=== PATIENT | male | born 1965 | race Caucasian/White ===

== ENCOUNTER 2020-06-03 15:02 | Emergency (ER) | payer SELFPAY ==
[~2020-06-03] VITALS: Ht 172.7 cm; Wt 89.5 kg
[2020-06-03 15:05] VITALS: BP 157/112
[2020-06-03] MEDS ORDERED: METHOCARBAMOL 750 MG TABLET ONE (15:21)
[2020-06-03] MEDS ORDERED: METHOCARBAMOL 750 MG TABLET PO ONE (15:30)
== END 2020-06-03 16:46 | disposition home or self-care (01) ==
LOC: ED 15:58
DX: S22.089A Unspecified fracture of T11-T12 vertebra, initial encounter for closed fracture (principal); V09.9XXA Pedestrian injured in unspecified transport accident, initial encounter; Y93.89 Activity, other specified; Y92.481 Parking lot as the place of occurrence of the external cause; Y99.8 Other external cause status
CPT/HCPCS: 72072; 72110; 99284

== ENCOUNTER 2020-06-05 17:05 | Emergency (ER) | payer OTHER ==
[~2020-06-05] VITALS: Ht 172.7 cm; Wt 92.6 kg
[2020-06-05] MEDS ORDERED: DIAZEPAM 5 MG/ML, 2ML IVPush ONE (17:30)
[2020-06-05] MEDS ORDERED: KETOROLAC 30 MG/1 ML IVPush ONE (17:30)
[2020-06-05] MEDS ORDERED: LIDODERM 5% PATCH TD ONE ×2 (17:30→17:44)
[2020-06-05] MEDS ORDERED: DIAZEPAM 5 MG/ML, 2ML ONE (17:44)
--- NOTE | 2020-06-05 18:03 | NUR ---
piv placed-medicated per emar for lower back/right leg pain at 06/17
--- NOTE | 2020-06-05 18:56 | NUR ---
REPORT FROM GUANACO BRYANT AT T HIS TIME
--- NOTE | 2020-06-05 18:59 | NUR ---
Eith reassessment patient reports "before Ct scan my pain was getting better like a 7, now its back up to 8 or 9." Provider made aware Report to amy BRYANT
[2020-06-05] MEDS ORDERED: MORPHINE SULFATE 4 MG/ML, 1ML ONE (19:12)
[2020-06-05] MEDS ORDERED: MORPHINE SULFATE 4 MG/ML, 1ML IVPush PRN (19:30)
[2020-06-05 21:04] VITALS: BP 152/98
== END 2020-06-05 21:07 | disposition home or self-care (01) ==
LOC: ED 19:03
DX: M54.16 Radiculopathy, lumbar region (principal); M54.6 Pain in thoracic spine
CPT/HCPCS: 72128; 72131; 96374; 96375; 99285; J1885; J2270; J3360

== ENCOUNTER 2020-06-12 21:18 | Emergency (ER) | payer OTHER ==
[~2020-06-12] VITALS: Ht 175.3 cm; Wt 91.0 kg
[2020-06-12 21:56] LABS: MICROSCOPIC INDICATED
[2020-06-12] MEDS ORDERED: KETOROLAC 30 MG/1 ML IVPush ONE (22:00)
[2020-06-12] MEDS ORDERED: SODIUM CHLORIDE FLUSH 10ML SYR IVF ONE (22:00)
[2020-06-12] MEDS ORDERED: ONDANSETRON 2MG/ML, 2ML IVPush ONE (22:00)
--- NOTE | 2020-06-12 22:20 | NUR ---
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
[2020-06-12] MEDS ORDERED: KETOROLAC 30 MG/1 ML ONE (22:34)
[2020-06-12] MEDS ORDERED: ONDANSETRON 2MG/ML, 2ML ONE (22:34)
[2020-06-12 22:39] LABS: ALANINE AMINOTRANSFERASE 20 U/L (12-78); ALBUMIN 4.2 g/dL (3.4-5.0); ANION GAP 4 mmol/L (5-15); CALCIUM 9.2 mg/dL (8.5-10.1); CHLORIDE 107 mmol/L (98-107); CREATININE 1.15 mg/dL (0.7-1.3)
[2020-06-12 22:41] LABS: ALKALINE PHOSPHATASE 115 U/L (45-117); BILIRUBIN,TOTAL 0.8 mg/dL (0.2-1.0); TOTAL PROTEIN 7.8 g/dL (6.4-8.2)
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
[2020-06-12 22:54] LABS: BASOPHILS % (AUTO) 1 % (0-1); EOSINOPHILS % (AUTO) 1 % (1-7); LYMPHOCYTES % (AUTO) 19 % (22-44); MEAN CORPUSCULAR HEMOGLOBIN 29.9 pg (27.5-34.5); MEAN CORPUSCULAR HGB CONC 33.6 g/dL (33.2-36.2); MONOCYTES % (AUTO) 8 % (2-9); NEUTROPHILS % (AUTO) 71 % (42-75); PLATELET COUNT 248 x10^3/uL (130-400); RED CELL DISTRIBUTION WIDTH 13.9 % (9.4-14.8)
[2020-06-12] MEDS ORDERED: MORPHINE SULFATE 4 MG/ML, 1ML ONE (23:10)
[2020-06-12] MEDS: MORPHINE SULFATE 4 MG/ML, 1ML IVPush PRN (23:12)
[2020-06-12 23:18] LABS: MD NO
[2020-06-13] MEDS ORDERED: MORPHINE SULFATE 4 MG/ML, 1ML ONE (00:19)
[2020-06-13] MEDS: MORPHINE SULFATE 4 MG/ML, 1ML IVPush PRN (00:20)
[2020-06-13 00:23] VITALS: BP 150/80
== END 2020-06-13 00:50 | disposition home or self-care (01) ==
LOC: ED 23:17
DX: N20.0 Calculus of kidney (principal)
CPT/HCPCS: 36415; 74176; 80053; 81001; 85025; 87086; 96374; 96375; 96376; 99284; J1885; J2270; J2405

== ENCOUNTER 2020-06-15 06:45 | Emergency (ER) | payer OTHER ==
[~2020-06-15] VITALS: Ht 172.7 cm; Wt 91.8 kg
--- NOTE | 2020-06-15 07:20 | NUR ---
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 PT PROVIDED WITH URINE CUP. AMB TO BR TO ATTEMPT TO OBTAIN URINE SAMPLE.
[2020-06-15] MEDS ORDERED: KETOROLAC 60 MG/2 ML ONE (07:57)
[2020-06-15] MEDS ORDERED: KETOROLAC 30 MG/1 ML IM ONE (08:00)
[2020-06-15 08:05] LABS: BASOPHILS % (AUTO) 1 % (0-1); EOSINOPHILS % (AUTO) 2 % (1-7); LYMPHOCYTES % (AUTO) 27 % (22-44); MEAN CORPUSCULAR HGB CONC 33.4 g/dL (33.2-36.2); MEAN PLATELET VOLUME 7.8 fL (7.4-10.4); MONOCYTES % (AUTO) 8 % (2-9); NEUTROPHILS % (AUTO) 62 % (42-75); PLATELET COUNT 227 x10^3/uL (130-400); RED BLOOD COUNT 4.51 x10^6/uL (4.38-5.82); RED CELL DISTRIBUTION WIDTH 14.5 % (9.4-14.8)
[2020-06-15 08:09] LABS: MD NO
[2020-06-15 08:14] LABS: ALBUMIN 3.9 g/dL (3.4-5.0); CALCIUM 8.9 mg/dL (8.5-10.1); CREATININE 0.98 mg/dL (0.7-1.3)
[2020-06-15 08:28] LABS: ANION GAP 7 mmol/L (5-15); CHLORIDE 110 mmol/L (98-107)
[2020-06-15 08:29] LABS: MICROSCOPIC INDICATED
[2020-06-15 09:00] VITALS: BP 131/76
--- NOTE | 2020-06-15 09:04 | NUR ---
law in room, pt to be tx for colitis. as
== END 2020-06-15 09:32 | disposition home or self-care (01) ==
LOC: ED 07:59
DX: N20.0 Calculus of kidney (principal); A09 Infectious gastroenteritis and colitis, unspecified
CPT/HCPCS: 36415; 74018; 76770; 80048; 81001; 82040; 85025; 96372; 99285; J1885

== ENCOUNTER 2020-06-19 12:52 | Emergency (ER) | payer SELFPAY ==
[~2020-06-19] VITALS: Ht 172.7 cm; Wt 92.3 kg
[2020-06-19 13:42] LABS: MICROSCOPIC AUTO
[2020-06-19] MEDS ORDERED: ONDANSETRON 2MG/ML, 2ML IVPush ONE (14:00)
[2020-06-19] MEDS ORDERED: KETOROLAC 30 MG/1 ML IVPush ONE (14:00)
[2020-06-19] MEDS ORDERED: SODIUM CHLORIDE FLUSH 10ML SYR IVF ONE (14:00)
[2020-06-19] MEDS ORDERED: KETOROLAC 30 MG/1 ML ONE (14:12)
[2020-06-19] MEDS ORDERED: ONDANSETRON ODT 4 MG ONE (14:12)
[2020-06-19] MEDS ORDERED: ONDANSETRON 2MG/ML, 2ML ONE (14:13)
[2020-06-19 14:29] LABS: BASOPHILS % (AUTO) 1 % (0-1); EOSINOPHILS % (AUTO) 1 % (1-7); LYMPHOCYTES % (AUTO) 22 % (22-44); MEAN CORPUSCULAR HEMOGLOBIN 29.5 pg (27.5-34.5); MEAN CORPUSCULAR HGB CONC 32.9 g/dL (33.2-36.2); MEAN PLATELET VOLUME 7.6 fL (7.4-10.4); MONOCYTES % (AUTO) 6 % (2-9); NEUTROPHILS % (AUTO) 70 % (42-75); PLATELET COUNT 226 x10^3/uL (130-400); RED BLOOD COUNT 4.51 x10^6/uL (4.38-5.82); RED CELL DISTRIBUTION WIDTH 14.6 % (9.4-14.8)
[2020-06-19 14:39] LABS: ALBUMIN 4.2 g/dL (3.4-5.0); ANION GAP 6 mmol/L (5-15); CALCIUM 9.5 mg/dL (8.5-10.1); CHLORIDE 111 mmol/L (98-107); CREATININE 0.97 mg/dL (0.7-1.3)
[2020-06-19 14:42] LABS: MD NO
[2020-06-19] MEDS ORDERED: HYDROmorphone 2 MG/ML, 1ML IVPush PRN (15:30)
[2020-06-19] MEDS ORDERED: HYDROmorphone 1 MG/ML, 1ML INJ ONE (15:31)
--- NOTE | 2020-06-19 15:35 | NUR ---
pt still c/o pain after toradol, medicated with dilaudid, vss. placed on monitor
[2020-06-19 16:45] VITALS: BP 164/87
== END 2020-06-19 16:47 | disposition home or self-care (01) ==
LOC: ED 14:34
DX: N23 Unspecified renal colic (principal); R11.0 Nausea; R30.9 Painful micturition, unspecified
CPT/HCPCS: 36415; 74018; 76770; 80048; 81001; 82040; 85025; 87086; 96374; 96375; 99285; J1170; J1885; J2405

== ENCOUNTER 2020-06-28 16:02 | Emergency (ER) | payer OTHER ==
[~2020-06-28] VITALS: Ht 172.7 cm; Wt 91.3 kg
[2020-06-28 16:28] VITALS: BP 161/104
[2020-06-28] MEDS ORDERED: HYDROcodone/APAP 10/325 MG TABLET PO ONE (17:30)
[2020-06-28] MEDS ORDERED: CYCLOBENZAPRINE 10 MG TABLET PO ONE (17:30)
[2020-06-28] MEDS ORDERED: CYCLOBENZAPRINE 10 MG TABLET ONE (17:46)
[2020-06-28] MEDS ORDERED: HYDROcodone/APAP 10/325 MG TABLET ONE (17:46)
[2020-06-28] MEDS ORDERED: HYDROcodone/APAP 5/325 TABLET ONE ×2 (18:23→18:25)
[2020-06-28] MEDS ORDERED: HYDROcodone/APAP 5/325 TABLET PO ONE (18:30)
== END 2020-06-28 19:18 | disposition home or self-care (01) ==
LOC: ED 19:00
DX: S39.012A Strain of muscle, fascia and tendon of lower back, initial encounter (principal); W22.8XXA Striking against or struck by other objects, initial encounter; Y93.89 Activity, other specified; Y92.89 Other specified places as the place of occurrence of the external cause; Y99.8 Other external cause status
CPT/HCPCS: 99284

== ENCOUNTER 2020-07-20 17:53 | Emergency (ER) | payer OTHER ==
[~2020-07-20] VITALS: Ht 172.7 cm; Wt 98.0 kg
[2020-07-20 18:04] VITALS: BP 163/90
--- NOTE | 2020-07-20 18:39 | NUR ---
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
--- NOTE | 2020-07-20 21:07 | NUR ---
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 BACK IN LOBBY REQUESTING TO BE SEEN.
--- NOTE | 2020-07-20 21:23 | NUR ---
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
--- NOTE | 2020-07-20 21:31 | NUR ---
THIS IS A 55Y M THAT COMES IN FOR LOW BACK PAIN. PT HAS HX OF THIS BUT STS ITS WORSE TODAY. PT AMBULATORY THROUGH ER NO ASSIST REQUIRED. PT RESTING ON GURNEY NADN. NO NEEDS AT THIS TIME. EDUCATED ON NEED FOR URINE SAMPLE
--- NOTE | 2020-07-20 21:37 | NUR ---
PT UP TO RESTROOM FOR URINE SAMPLE
[2020-07-20 21:38] LABS: BASOPHILS % (AUTO) 1 % (0-1); EOSINOPHILS % (AUTO) 2 % (1-7); LYMPHOCYTES % (AUTO) 18 % (22-44); MEAN CORPUSCULAR HEMOGLOBIN 29.9 pg (27.5-34.5); MEAN CORPUSCULAR HGB CONC 33.4 g/dL (33.2-36.2); MEAN PLATELET VOLUME 7.7 fL (7.4-10.4); MONOCYTES % (AUTO) 8 % (2-9); NEUTROPHILS % (AUTO) 72 % (42-75); PLATELET COUNT 236 x10^3/uL (130-400); RED BLOOD COUNT 4.65 x10^6/uL (4.38-5.82); RED CELL DISTRIBUTION WIDTH 14.2 % (9.4-14.8)
[2020-07-20 21:39] LABS: MD NO
[2020-07-20 21:47] LABS: ALANINE AMINOTRANSFERASE 21 U/L (12-78); ALBUMIN 4.5 g/dL (3.4-5.0); ANION GAP 6 mmol/L (5-15); CALCIUM 9.8 mg/dL (8.5-10.1); CHLORIDE 107 mmol/L (98-107); CREATININE 1.03 mg/dL (0.7-1.3)
[2020-07-20 21:49] LABS: ALKALINE PHOSPHATASE 122 U/L (45-117); BILIRUBIN,TOTAL 0.7 mg/dL (0.2-1.0); TOTAL PROTEIN 8.1 g/dL (6.4-8.2)
--- NOTE | 2020-07-20 21:50 | NUR ---
URINE SAMPLE WALKED TO LAB
[2020-07-20 22:06] LABS: MICROSCOPIC AUTO
--- NOTE | 2020-07-20 22:15 | NUR ---
ETIENNE AT BEDSIDE FOR ASSESSMENT AND POC
[2020-07-20] MEDS ORDERED: KETOROLAC 30 MG/1 ML ONE (22:24)
[2020-07-20] MEDS ORDERED: DIAZEPAM 5 MG TABLET ONE (22:24)
[2020-07-20] MEDS ORDERED: KETOROLAC 30 MG/1 ML IM ONE (22:30)
[2020-07-20] MEDS ORDERED: DIAZEPAM 5 MG TABLET PO ONE (22:30)
--- NOTE | 2020-07-20 22:30 | NUR ---
PT MEDICATED PER VALERIE ALEX
--- NOTE | 2020-07-20 23:18 | NUR ---
Patient given discharge instructions and prescription and they have confirmed that they understand the instructions. All questions answered. Patient stable and ambulatory with steady gait from ED.
== END 2020-07-20 23:19 | disposition home or self-care (01) ==
LOC: ED 22:49
DX: G89.29 Other chronic pain (principal); M54.5 Low back pain; R31.29 Other microscopic hematuria
CPT/HCPCS: 36415; 80053; 81001; 85025; 96372; 99283; J1885

== ENCOUNTER 2020-08-02 07:52 | Emergency (ER) | payer OTHER ==
[2020-08-02] MEDS ORDERED: SODIUM CHLORIDE FLUSH 10ML SYR IVF ONE (08:30)
[2020-08-02] MEDS ORDERED: ONDANSETRON 2MG/ML, 2ML IVPush ONE ×2 (08:30→09:30)
[2020-08-02] MEDS ORDERED: KETOROLAC 30 MG/1 ML IVPush ONE (08:30)
[2020-08-02] MEDS ORDERED: ONDANSETRON 2MG/ML, 2ML ONE (08:47)
[2020-08-02] MEDS ORDERED: KETOROLAC 30 MG/1 ML ONE (08:47)
[2020-08-02 08:50] LABS: BASOPHILS % (AUTO) 2 % (0-1); EOSINOPHILS % (AUTO) 1 % (1-7); LYMPHOCYTES % (AUTO) 22 % (22-44); MEAN CORPUSCULAR HEMOGLOBIN 29.8 pg (27.5-34.5); MEAN CORPUSCULAR HGB CONC 33.4 g/dL (33.2-36.2); MEAN PLATELET VOLUME 7.8 fL (7.4-10.4); MONOCYTES % (AUTO) 7 % (2-9); NEUTROPHILS % (AUTO) 69 % (42-75); PLATELET COUNT 222 x10^3/uL (130-400); RED BLOOD COUNT 4.92 x10^6/uL (4.38-5.82)
[2020-08-02 08:52] LABS: MD NO
[2020-08-02 08:57] LABS: ALBUMIN 4.3 g/dL (3.4-5.0); ANION GAP 9 mmol/L (5-15); CALCIUM 9.4 mg/dL (8.5-10.1); CHLORIDE 110 mmol/L (98-107); CREATININE 1.07 mg/dL (0.7-1.3)
[2020-08-02 09:05] LABS: MICROSCOPIC INDICATED
[2020-08-02] MEDS ORDERED: MORPHINE SULFATE 4 MG/ML, 1ML IVPush PRN (09:30)
[2020-08-02] MEDS ORDERED: MORPHINE SULFATE 4 MG/ML, 1ML ONE (10:01)
[2020-08-02 11:07] VITALS: BP 163/94
== END 2020-08-02 11:12 | disposition home or self-care (01) ==
LOC: ED 08:47
DX: N23 Unspecified renal colic (principal); R31.9 Hematuria, unspecified
CPT/HCPCS: 36415; 74176; 80048; 81001; 82040; 85025; 87086; 96374; 96375; 99284; J1885; J2270; J2405

== ENCOUNTER 2020-08-04 22:52 | Emergency (ER) | payer OTHER ==
[~2020-08-04] VITALS: Ht 172.7 cm; Wt 93.0 kg
[2020-08-04] MEDS ORDERED: KETOROLAC 30 MG/1 ML ONE (23:15)
[2020-08-04] MEDS ORDERED: MORPHINE SULFATE 4 MG/ML, 1ML ONE (23:15)
[2020-08-04] MEDS ORDERED: ONDANSETRON 2MG/ML, 2ML ONE (23:15)
[2020-08-04 23:23] LABS: MICROSCOPIC INDICATED
[2020-08-04] MEDS: MORPHINE SULFATE 4 MG/ML, 1ML IVPush PRN (23:24)
[2020-08-04] MEDS ORDERED: ONDANSETRON 2MG/ML, 2ML IVPush ONE (23:30)
[2020-08-04] MEDS ORDERED: SODIUM CHLORIDE FLUSH 10ML SYR IVF ONE (23:30)
[2020-08-04] MEDS ORDERED: KETOROLAC 30 MG/1 ML IVPush ONE (23:30)
--- NOTE | 2020-08-04 23:31 | NUR ---
IV STARTED BLOOD DRAWN AND SENT, URINE SENT. MEDICATED PER ORDER, SIDE RAILS UP, CALL STREET IN REACH, ON CONT PULSE OX B/P. WILL RE-EVALUATE.
[2020-08-04 23:45] LABS: BASOPHILS % (AUTO) 1 % (0-1); EOSINOPHILS % (AUTO) 2 % (1-7); LYMPHOCYTES % (AUTO) 24 % (22-44); MD NO; MEAN CORPUSCULAR HEMOGLOBIN 30.4 pg (27.5-34.5); MEAN CORPUSCULAR HGB CONC 33.7 g/dL (33.2-36.2); MEAN PLATELET VOLUME 7.9 fL (7.4-10.4); MONOCYTES % (AUTO) 7 % (2-9); NEUTROPHILS % (AUTO) 66 % (42-75); PLATELET COUNT 230 x10^3/uL (130-400); RED BLOOD COUNT 4.67 x10^6/uL (4.38-5.82); RED CELL DISTRIBUTION WIDTH 13.9 % (9.4-14.8)
[2020-08-04 23:55] LABS: ALANINE AMINOTRANSFERASE 26 U/L (12-78); ALBUMIN 4.1 g/dL (3.4-5.0); ANION GAP 4 mmol/L (5-15); CALCIUM 8.9 mg/dL (8.5-10.1); CHLORIDE 108 mmol/L (98-107); CREATININE 1.02 mg/dL (0.7-1.3)
[2020-08-04 23:58] LABS: ALKALINE PHOSPHATASE 116 U/L (45-117); BILIRUBIN,TOTAL 0.9 mg/dL (0.2-1.0); TOTAL PROTEIN 7.5 g/dL (6.4-8.2)
[2020-08-05] MEDS: MORPHINE SULFATE 4 MG/ML, 1ML IVPush PRN (00:01)
--- NOTE | 2020-08-05 00:05 | NUR ---
PT STATES PAIN NOT IMPROVED, MEDICATED WITH 2ND DOSE OF MORPHINE. ON CONT PULSE OX, B/P. CALL STREET IN REACH. WILL CONTINUE TO MONITOR.
--- NOTE | 2020-08-05 00:14 | NUR ---
PT REPORTS FEELING BETTER. VSS.
[2020-08-05 00:22] VITALS: BP 124/74
== END 2020-08-05 00:25 | disposition home or self-care (01) ==
LOC: ED 23:22
DX: N20.0 Calculus of kidney (principal); R31.9 Hematuria, unspecified; R10.9 Unspecified abdominal pain; R11.0 Nausea
CPT/HCPCS: 36415; 80053; 81001; 85025; 87086; 96374; 96375; 96376; 99284; J1885; J2270; J2405

== ENCOUNTER 2020-12-13 13:22 | Emergency (ER) | payer SELFPAY ==
[~2020-12-13] VITALS: Ht 172.7 cm; Wt 92.1 kg
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
[2020-12-13] MEDS ORDERED: SODIUM CHLORIDE FLUSH 10ML SYR IVF ONE (14:00)
[2020-12-13] MEDS ORDERED: ONDANSETRON 2MG/ML, 2ML IVPush ONE (14:00)
[2020-12-13 14:01] LABS: BASOPHILS % (AUTO) 1 % (0-1); EOSINOPHILS % (AUTO) 4 % (1-7); LYMPHOCYTES % (AUTO) 20 % (22-44); MEAN CORPUSCULAR HEMOGLOBIN 29.9 pg (27.5-34.5); MEAN CORPUSCULAR HGB CONC 33.4 g/dL (33.2-36.2); MEAN PLATELET VOLUME 7.1 fL (7.4-10.4); MONOCYTES % (AUTO) 9 % (2-9); NEUTROPHILS % (AUTO) 68 % (42-75); PLATELET COUNT 234 x10^3/uL (130-400); RED BLOOD COUNT 3.95 x10^6/uL (4.38-5.82); RED CELL DISTRIBUTION WIDTH 13.4 % (9.4-14.8)
[2020-12-13 14:02] LABS: MD NO
[2020-12-13] MEDS ORDERED: ONDANSETRON 2MG/ML, 2ML ONE (14:09)
[2020-12-13] MEDS ORDERED: MORPHINE SULFATE 4 MG/ML, 1ML ONE ×2 (14:09→14:51)
[2020-12-13] MEDS: MORPHINE SULFATE 4 MG/ML, 1ML IVPush PRN ×2 (14:12→14:53)
[2020-12-13 14:13] LABS: ALANINE AMINOTRANSFERASE 24 U/L (12-78); ANION GAP 4 mmol/L (5-15); CHLORIDE 110 mmol/L (98-107); CREATININE 0.89 mg/dL (0.7-1.3)
--- NOTE | 2020-12-13 14:15 | NUR ---
PT MEDICATED PER EMAR FOR PAIN
[2020-12-13 14:16] LABS: ALKALINE PHOSPHATASE 110 U/L (45-117); BILIRUBIN,TOTAL 0.4 mg/dL (0.2-1.0); TOTAL PROTEIN 7.8 g/dL (6.4-8.2)
[2020-12-13] MEDS ORDERED: OMNIPAQUE 350 MG/ML, 75ML BOTTLE ONE ×2 (14:46→15:05)
--- NOTE | 2020-12-13 14:56 | NUR ---
PT REPORTS CONTINUED PAIN. MEDICATED PER EMAR. BP STABLE. AWAITING CT READ
[2020-12-13 14:57] VITALS: BP 147/80
[2020-12-13] MEDS ORDERED: OXYcodone/APAP 5/325MG TABLET PO ONE (15:30)
[2020-12-13] MEDS ORDERED: OXYcodone/APAP 5/325MG TABLET ONE (15:41)
--- NOTE | 2020-12-13 15:58 | NUR ---
DC EDUCATION PROVIDED, PT DEMONSTRATES UNDERSTANDING. PT AMBULATED STEADILY TO DC WITH RN. SON TO TRANSPORT PT HOME
== END 2020-12-13 16:00 | disposition home or self-care (01) ==
LOC: ED 15:45
DX: S20.213A Contusion of bilateral front wall of thorax, initial encounter (principal); R06.02 Shortness of breath; M54.5 Low back pain; R10.9 Unspecified abdominal pain; X58.XXXA Exposure to other specified factors, initial encounter; Y93.89 Activity, other specified; Y92.89 Other specified places as the place of occurrence of the external cause; Y99.8 Other external cause status
CPT/HCPCS: 36415; 71260; 80053; 85025; 96374; 96375; 96376; 99285; J2270; J2405; Q9967

== ENCOUNTER 2021-02-07 13:32 | Emergency (ER) | payer SELFPAY ==
[~2021-02-07] VITALS: Ht 172.7 cm; Wt 85.0 kg
[2021-02-07] MEDS ORDERED: ONDANSETRON 2MG/ML, 2ML ONE (14:19)
[2021-02-07] MEDS ORDERED: MORPHINE SULFATE 4 MG/ML, 1ML ONE ×2 (14:19→14:56)
[2021-02-07] MEDS: MORPHINE SULFATE 4 MG/ML, 1ML IVPush PRN ×2 (14:25→15:00)
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
[2021-02-07] MEDS ORDERED: ONDANSETRON 2MG/ML, 2ML IVPush ONE (14:30)
[2021-02-07] MEDS ORDERED: SODIUM CHLORIDE 0.9% 1,000 ML IV ONE (14:30)
[2021-02-07] MEDS ORDERED: SODIUM CHLORIDE FLUSH 10ML SYR IVF ONE (14:30)
[2021-02-07 14:33] LABS: BASOPHILS % (AUTO) 1 % (0-1); EOSINOPHILS % (AUTO) 4 % (1-7); LYMPHOCYTES % (AUTO) 18 % (22-44); MEAN CORPUSCULAR HEMOGLOBIN 28.6 pg (27.5-34.5); MEAN CORPUSCULAR HGB CONC 33.7 g/dL (33.2-36.2); MEAN PLATELET VOLUME 7.4 fL (7.4-10.4); MONOCYTES % (AUTO) 8 % (2-9); NEUTROPHILS % (AUTO) 71 % (42-75); PLATELET COUNT 293 x10^3/uL (130-400); RED BLOOD COUNT 4.68 x10^6/uL (4.38-5.82); RED CELL DISTRIBUTION WIDTH 14.2 % (9.4-14.8)
[2021-02-07 14:37] LABS: MD NO
[2021-02-07 14:43] LABS: ALANINE AMINOTRANSFERASE 19 U/L (12-78); ALBUMIN 3.8 g/dL (3.4-5.0); ANION GAP 6 mmol/L (5-15); CALCIUM 9.3 mg/dL (8.5-10.1); CHLORIDE 107 mmol/L (98-107)
[2021-02-07 14:44] LABS: ALKALINE PHOSPHATASE 127 U/L (45-117); BILIRUBIN,TOTAL 1.1 mg/dL (0.2-1.0)
[2021-02-07 14:50] LABS: INTERNATIONAL NORMALIZED RATIO 1.1 (0.93-1.1); PROTHROMBIN TIME 11.8 Seconds (9.6-11.5)
[2021-02-07 14:51] VITALS: BP 137/82
--- NOTE | 2021-02-07 15:03 | NUR ---
TASK RN: PATIENT C/O 04/17 ABD AND BACK PAIN, SECOND DOSE OF MORPHINE ADMINISTERED, NS HUNG, VSS, SIDE RAILS UP X2, CALL LIGHT WITHIN REACH. WAITING FOR IMAGING.
[2021-02-07] MEDS ORDERED: OMNIPAQUE 350 MG/ML, 100ML BOTTLE ONE (15:44)
== END 2021-02-07 16:59 | disposition home or self-care (01) ==
LOC: ED 16:53
DX: S33.5XXA Sprain of ligaments of lumbar spine, initial encounter (principal); S23.9XXA Sprain of unspecified parts of thorax, initial encounter; X58.XXXA Exposure to other specified factors, initial encounter; Y93.89 Activity, other specified; Y92.89 Other specified places as the place of occurrence of the external cause; Y99.8 Other external cause status
CPT/HCPCS: 36415; 72128; 72131; 74177; 80053; 83690; 85025; 85610; 96361; 96374; 96375; 96376; 99285; J2270; J2405; J7030; Q9967

== ENCOUNTER 2021-02-08 20:09 | Emergency (ER) | payer SELFPAY ==
[~2021-02-08] VITALS: Ht 172.7 cm; Wt 86.5 kg
--- NOTE | 2021-02-08 20:51 | NUR ---
ASSUMED CARE OF PATIENT. PATIENT REPORTS PAIN DOWN HIS RIGHT LEG. VS STABLE. CALL LIGHT IN PLACE. WILL CONTINUE TO MONITOR.
[2021-02-08] MEDS ORDERED: HYDROmorphone 1 MG/ML, 1ML INJ ONE (21:29)
[2021-02-08] MEDS ORDERED: METHOCARBAMOL 750 MG TABLET ONE (21:29)
[2021-02-08] MEDS ORDERED: METHOCARBAMOL 750 MG TABLET PO ONE (21:30)
[2021-02-08] MEDS ORDERED: HYDROmorphone 1 MG/ML, 1ML INJ IM ONE (21:30)
--- NOTE | 2021-02-08 22:30 | NUR ---
PT REPORTS HE IS FEELING BETTER. VS STABLE. NO ACUTE DISTRESS NOTED. WILL CONTINUE TO MONITOR.
[2021-02-08 23:31] VITALS: BP 155/85
== END 2021-02-08 23:33 | disposition home or self-care (01) ==
LOC: ED 21:30
DX: M54.5 Low back pain (principal)
CPT/HCPCS: 96372; 99283; J1170

== ENCOUNTER 2021-04-09 18:37 | Emergency (ER) | payer SELFPAY ==
[~2021-04-09] VITALS: Ht 172.7 cm; Wt 81.6 kg
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
[2021-04-09] MEDS ORDERED: SODIUM CHLORIDE FLUSH 10ML SYR IVF ONE (19:00)
[2021-04-09] MEDS ORDERED: ONDANSETRON 2MG/ML, 2ML ONE (19:04)
[2021-04-09] MEDS ORDERED: HYDROmorphone 2 MG/ML, 1ML ONE (19:04)
[2021-04-09 19:10] LABS: BASOPHILS % (AUTO) 1 % (0-1); EOSINOPHILS % (AUTO) 9 % (1-7); LYMPHOCYTES % (AUTO) 28 % (22-44); MEAN CORPUSCULAR HEMOGLOBIN 28.2 pg (27.5-34.5); MEAN CORPUSCULAR HGB CONC 33.4 g/dL (33.2-36.2); MEAN PLATELET VOLUME 7.6 fL (7.4-10.4); MONOCYTES % (AUTO) 9 % (2-9); NEUTROPHILS % (AUTO) 53 % (42-75); PLATELET COUNT 232 x10^3/uL (130-400); RED BLOOD COUNT 4.63 x10^6/uL (4.38-5.82); RED CELL DISTRIBUTION WIDTH 16.9 % (9.4-14.8)
[2021-04-09 19:20] LABS: ALBUMIN 3.4 g/dL (3.4-5.0); CALCIUM 8.7 mg/dL (8.5-10.1); CHLORIDE 109 mmol/L (98-107); CREATININE 1.12 mg/dL (0.7-1.3)
[2021-04-09 19:30] LABS: ANION GAP 10 mmol/L (5-15)
[2021-04-09] MEDS ORDERED: ONDANSETRON 2MG/ML, 2ML IVPush ONE (19:30)
[2021-04-09] MEDS ORDERED: HYDROmorphone 1 MG/ML, 1ML INJ IV ONE ×2 (19:30→20:30)
[2021-04-09] MEDS ORDERED: OMNIPAQUE 350 MG/ML, 100ML BOTTLE ONE (20:11)
[2021-04-09] MEDS ORDERED: POTASSIUM CHLORIDE 20 MEQ TAB.ER.PRT PO ONE (20:30)
[2021-04-09] MEDS ORDERED: POTASSIUM CHLORIDE 40 MEQ in SODIUM CHLORIDE 0.9% 1,000 ML IV ONE (20:30)
[2021-04-09] MEDS ORDERED: POTASSIUM CHLORIDE 20 MEQ TAB.ER.PRT ONE (21:10)
[2021-04-09] MEDS ORDERED: NS + 40MEQ KCL 1,000 ML IV ONE (21:10)
[2021-04-09] MEDS ORDERED: HYDROcodone/APAP 5/325 TABLET ONE (21:10)
[2021-04-09] MEDS ORDERED: HYDROcodone/APAP 5/325 TABLET PO ONE (21:30)
[2021-04-09 22:47] VITALS: BP 141/83
--- NOTE | 2021-04-09 22:48 | NUR ---
Discharge instructions given. All questions and concerns addressed. Patient ambulatory with a steady gait. Belongings with patient.
== END 2021-04-09 22:51 | disposition home or self-care (01) ==
LOC: ED 19:56
DX: S20.212A Contusion of left front wall of thorax, initial encounter (principal); S20.211A Contusion of right front wall of thorax, initial encounter; S06.9X1A Unspecified intracranial injury with loss of consciousness of 30 minutes or less, initial encounter; M54.2 Cervicalgia; E87.6 Hypokalemia; V86.59XA Driver of other special all-terrain or other off-road motor vehicle injured in nontraffic accident, initial encounter; Y93.89 Activity, other specified; Y92.410 Unspecified street and highway as the place of occurrence of the external cause; Y99.8 Other external cause status
CPT/HCPCS: 36415; 70450; 71260; 72125; 74177; 80048; 82040; 85025; 96365; 96366; 96375; 96376; 99285; J1170; J2405; J3480; J7030; Q9967